=== PATIENT | female | born 1965 | race Caucasian/White ===

== ENCOUNTER → 2016-07-28 | Outpatient (CLI) | payer OTHER | LOC: CIMAGING 08:13 | PROVIDERS: ATTEND Physician Assistant | DX: K76.0 Fatty (change of) liver, not elsewhere classified (principal); R16.0 Hepatomegaly, not elsewhere classified | CPT/HCPCS: 76705-PO ==

== ENCOUNTER → 2017-01-19 | Outpatient (CLI) | payer OTHER | LOC: CIMAGING 14:41 | PROVIDERS: ATTEND Nurse Practitioner | DX: J40 Bronchitis, not specified as acute or chronic (principal) | CPT/HCPCS: 71020-PO ==

== ENCOUNTER → 2017-11-14 | Outpatient (CLI) | payer OTHER | LOC: CIMAGING 17:09 | PROVIDERS: ATTEND Nurse Practitioner | DX: Z01.818 Encounter for other preprocedural examination (principal); M48.061 Spinal stenosis, lumbar region without neurogenic claudication; M51.16 Intervertebral disc disorders with radiculopathy, lumbar region; Q76.0 Spina bifida occulta | CPT/HCPCS: 71046-PO ==